=== PATIENT | female | born 2000 | race Two or more races ===

== ENCOUNTER 2023-07-22 08:01 | Emergency (ER) | payer OTHER ==
[~2023-07-22] VITALS: Ht 162.6 cm; Wt 74.8 kg
[2023-07-22 08:35] VITALS: BP 109/63; TEMP 98.5; O2SAT 98
== END 2023-07-22 09:25 | disposition home or self-care (01) ==
LOC: ER 08:10
DX: T63.301A Toxic effect of unspecified spider venom, accidental (unintentional), initial encounter (principal); Y92.89 Other specified places as the place of occurrence of the external cause